=== PATIENT | female | born 1950 | race Hispanic/Latino ===

== ENCOUNTER 2017-07-09 13:05 | Outpatient (CLI) | payer BC ==
[~2017-07-09 13:05] MED LIST: Gadobenate Dimeglumine 529 MG/1 ML (20ML VIAL) ONE
--- NOTE | 2017-07-09 19:56 | MRI ---
CERVICAL SPINE MRI WITH AND WITHOUT CONTRAST: 07/09/17 COMPARISON: None. HISTORY: Right sided arm numbness which has worsened recently since January. TECHNIQUE: Multiplanar and multisequence MR imaging of the cervical spine is provided with and without contrast . FINDINGS: The sagittal STIR imaging demonstrates no focal area of osseous marrow edema. There is straightening of the normal cervical lordosis. The craniocervical junction is intact as is the cervicothoracic junction. C2-3: there is a central annular tear with a small associated central disc protrusion which partiall y effaces the ventral thecal sac with minimal associated central canal stenosis. Mild bilateral face t hypertrophy with no significant neural foraminal stenosis on either side. C3-4: There is disc desiccation and mild disc bulge with no significant central canal or neural fora vadim stenosis. C4-5: There is disc desiccation and mild disc space narrowing. There is no significant central canal or neural foraminal stenosis. C5-6: There is disc space narrowing and disc desiccation with disc bulge causing a mild degree of ce ntral canal stenosis. There is mild anterior osteophyte formation. Mild bilateral uncovertebral oste ophyte formation noted with no significant neural foraminal stenosis. C6-7: Disc space narrowing and disc desiccation and mild disc bulge present. No significant central canal stenosis. No significant neural foraminal stenosis on either side. C7-T1: There is disc desiccation. There is no significant central canal or neural foraminal stenosis . There is no focal area of abnormal T2 signal intensity within the cervical cord. The postcontrast imaging demonstrates no abnormal enhancement of the contents of the thecal sac, the imaged intervertebral discs, or the imaged osseous structures. IMPRESSION: Scattered areas of degenerative disc disease present with no significant central canal or neural for aminal stenosis. POS: [facility]
== END 2017-07-09 13:06 | disposition home or self-care (01) ==
LOC: SCSMRI 13:05
PROVIDERS: ATTEND Family Medicine
DX: M50.10 Cervical disc disorder with radiculopathy, unspecified cervical region (principal); R29.898 Other symptoms and signs involving the musculoskeletal system
CPT/HCPCS: 72156; A9579

== ENCOUNTER 2017-08-14 09:00 | Outpatient (CLI) | payer BC ==
--- NOTE | 2017-08-14 10:22 | MRI ---
MRI BRAIN NONCONTRAST: DATE: 08-14-17 HISTORY: 66-year-old female with R20.2 - right upper extremity hypesthesia for 1.5 months. COMPARISON: None. FINDINGS: There is an approximately 5 x 2 x 4 mm T2 hyperintense, FLAIR hyperintense and T1 hypointense tiny le salvador at the junction between the upper aspect of the right basal ganglia and the right kaiser radiata . There is a tiny T2 hyperintense and FLAIR hyperintense 1 x 4 mm lesion in the left parietal kaiser radiata. There are no other intraaxial signal abnormalities. There is no restricted diffusion. No ev idence of recent or remote intraaxial hemorrhage. Ventricles are normal in size and configuration. No mass effect, midline shift, or extraaxial fluid collection. Cerebellar tonsils are in normal positio n. IMPRESSION: 1. 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 2. Otherwise negative. BONIFACIO Pineda POS: [facility]
== END 2017-08-14 09:01 | disposition home or self-care (01) ==
LOC: TBSIIMAG 09:00
PROVIDERS: ATTEND Psychiatry & Neurology Neurology
DX: R20.2 Paresthesia of skin (principal); G93.9 Disorder of brain, unspecified
CPT/HCPCS: 70551